=== PATIENT | female | born 1955 | race Caucasian/White ===

== ENCOUNTER 2016-04-07 05:07 | Inpatient (IN) | payer BC, OTHER ==
--- NOTE | 2016-03-27 10:31 | HISTORY & PHYSICAL EXAMINATION ---
DATE OF ADMISSION: 04/07/2016 PROCEDURE: Left knee replacement. HISTORY OF PRESENT ILLNESS: The patient is a pleasant 60-year-old female who presents for preoperative evaluation prior to a left knee replacement. She states she has been having pain in this knee for several years now, which has gradually worsened. It has now gotten to the point it is affecting her daily activities including walking, standing, going up and down steps. She has tried oral anti-inflammatories including Mobic and Celebrex without relief. She has tried over the counter braces, cortisone injection and viscosupplementation with no relief. At this point in time, has failed conservative measures and would like to proceed with left knee replacement. PAST MEDICAL HISTORY: 1. Hypertension. 2. High cholesterol. 3. Diabetes. 4. Hypothyroidism. 5. Obesity. ALLERGIES: No known drug allergies. CURRENT MEDICATIONS: 1. Benazepril 20 mg daily. 2. Aspirin 81 mg daily. 3. Janumet 50/500 mg 2 daily. 4. Amlodipine 5 mg daily. 5. Statin 1 tablet daily. 6. Vitamin D3. PAST SURGICAL HISTORY: 1. Tonsillectomy in 1972. 2. Cholecystectomy in 1975. 3. Hysterectomy in 1989. FAMILY HISTORY: Noncontributory. SOCIAL HISTORY: The patient admits to smoking one half pack per day for 6 years. She denies any alcohol use. 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 REVIEW OF SYSTEMS: Otherwise negative. Please see HPI for pertinent positives. PHYSICAL EXAMINATION: GENERAL: Pleasant female in no acute distress, alert and oriented x3. She is 5 feet 1, weighs 215 pounds. VITAL SIGNS: Blood pressure is 118/70, pulse 70, O2 sats 98% on room air. HEAD, EYES, EARS, NOSE, AND THROAT: Normocephalic, atraumatic. CARDIAC: Regular rate and rhythm. No murmurs or gallops appreciated. Resting pulse 80 beats per minute. LUNGS: Clear to auscultation without rales or wheeze bilaterally. ABDOMEN: Soft, nontender. Bowel sounds present. EXTREMITIES: Left lower extremity is neurovascularly intact. Calves are soft and nontender. DP pulse +2. Demonstrates good quad tone. Straight leg raise without lag. No erythema or warmth. Has mild effusion. Overall has varus alignment. She has positive crepitation with motion, range of motion is 0/3/115. IMAGING: Reviewed of the left knee shows findings consistent with degenerative joint disease including joint space narrowing, subchondral sclerosis, peripheral osteophytes noted. Also has varus alignment, has complete loss of joint space of the medial compartment. IMPRESSION: 1. Left knee degenerative joint disease. 2. Hypertension. 3. High cholesterol. 4. Diabetes. 5. Hypothyroidism. PLAN: Further care discussed with patient. At this point in time, has failed conservative measures and would like to proceed with a left knee replacement on 04/07/2016. Will place on aspirin 81 mg p.o. b.i.d. for a month postop. Otherwise, has no other questions or concerns. At this point in time, would like to be discharged home with home health physical therapy.
[2016-03-27 12:49] VITALS: BMI 39.0
--- NOTE | 2016-03-27 13:16 | PAT Medication Instructions ---
Service Date Mar 27, 2016. Current Home Medication List Amlodipine (Norvasc), 5 MG PO QAM Aspirin (Aspirin Ec), 81 MG PO QAM Benazepril (Lotensin), 20 MG PO QAM Cholecalciferol (Vitamin D3), 1 TAB PO WEEKLY Naproxen (Aleve), 220 MG PO PRN Rosuvastatin Calcium (Crestor), 5 MG PO QAM Sitagliptin-Metformin Hcl (Janumet), 1 TAB PO QAM [Levothyroxiine], 1 TAB PO QAM Medication Instructions For Your Scheduled Surgery - Continue as directed: Cholecalciferol (Vitamin D3), 1 TAB PO WEEKLY - Hold the following medications 48 hours prior to surgery: Sitagliptin-Metformin Hcl (Janumet), 1 TAB PO QAM - Hold the following medications the morning of surgery: Benazepril (Lotensin), 20 MG PO QAM Naproxen (Aleve), 220 MG PO PRN - Take the following medications the morning of surgery with a sip of water OTHERWISE NOTHING TO EAT OR DRINK AFTER: Amlodipine (Norvasc), 5 MG PO QAM Aspirin (Aspirin Ec), 81 MG PO QAM Rosuvastatin Calcium (Crestor), 5 MG PO QAM [Levothyroxine], 1 TAB PO QAM If you have any questions please call us at [phone] or [phone] or [phone]
[2016-03-27 13:49] LABS: BASO % 1.1 %; COMPLETE YES; EOS % 3.1 %; HEMATOCRIT 40.6 % (37-47); IG% 0.2 %; LYMPH % 21.7 %; LYMPH ABS # 1.98 K/uL (1.2-3.4); MEAN CELL VOLUME 92.5 fL (80-100); MEAN CORPUSCULAR HGB CONC 33.5 g/dl (32-36); MONO % 4.1 %; NEUT % 69.8 %; PLATELET COUNT 241 K/uL (130-400); RED BLOOD COUNT 4.39 M/uL (4.2-5.4); WHITE BLOOD COUNT 9.12 K/uL (4.8-10.8)
--- NOTE | 2016-03-27 13:57 | DIAGNOSTIC IMAGING REPORT ---
CHEST PREADMISSION(PA/LAT) CLINICAL HISTORY: Preoperative chest COMPARISON STUDY: No previous studies for comparison. FINDINGS: The cardiac and mediastinal contours are normal. There is no evidence of focal pulmonary consolidation. There is no evidence of failure. No pleural effusions are visualized.[ IMPRESSION: No active disease in the chest. Electronically signed by: Rolando Woodruff M.D. 03/27/2016 1:56 PM Dictated Date/Time: 03/27/2016 1:56 PM
[2016-03-27 14:06] LABS: PROTHROMBIN TIME (PATIENT) 10.7 SECONDS (9.0-12.0)
[2016-03-27 14:07] LABS: ESTIMATED AVERAGE GLUCOSE 123 mg/dl; HA1C FLAG Normal (Normal)
[2016-03-27 14:13] LABS: BUN/CREATININE RATIO 20.1 (10-20); CREATININE 0.74 mg/dl (0.60-1.20); POTASSIUM 3.9 mmol/L (3.5-5.1)
[2016-03-27 14:25] LABS: URINE APPEARANCE CLEAR (CLEAR); URINE BILIRUBIN NEG (NEG); URINE COLOR YELLOW; URINE NITRITE NEG (NEG); URINE SPECIFIC GRAVITY 1.027 (1.000-1.030); UROBILINOGEN NEG (NEG)
[2016-03-27 14:29] LABS: MANUAL MICROSCOPIC REQUIRED? NO; REVIEW REQ? NO
[2016-04-07] VITALS (9 sets, daily range): BP systolic 114–170; BP diastolic 62–79; PULSE 53–76; TEMP 36.4–36.6; O2SAT 95–98; Ht 154.9 cm; Wt 97.0 kg
[~2016-04-07] VITALS: Ht 154.9 cm; Wt 97.0 kg
[~2016-04-07 05:07] MED LIST: AMLO-110 PO; ASPI81TA28 PO; BENA20TA14 PO; CHOL1000 PO; LEVOTHYROXINE PO; NAPR1TAB9 PO; ROSU5TAB PO; SITA50TA5 PO
[2016-04-07] MEDS ORDERED: FAMOTIDINE 20 MG TAB PO SCH (06:00)
[2016-04-07] MEDS ORDERED: CEFAZOLIN 2000 MG/60 ML D5W 60 ML IV SCH (06:00)
[2016-04-07] MEDS ORDERED: LACTATED RINGER'S 1000ML 500 ML IV ONE (06:00)
[2016-04-07] MEDS ORDERED: ROPIVACAINE 5MG/ML 30 ML 150 MG, BUPIVACAINE/EPINEPHR 0.5% MPF 30 ML, KETOROLAC TROMETH... INFIL SCH ×7 (06:00)
[2016-04-07] MEDS ORDERED: METOCLOPRAMIDE HCL 10 MG TAB PO SCH (06:00)
[2016-04-07] MEDS ORDERED: GABAPENTIN 300 MG CAP PO SCH (06:00)
[2016-04-07] MEDS ORDERED: LACTATED RINGER'S 1000ML 1,000 ML IV SCH (06:00)
[2016-04-07] MEDS ORDERED: CeleBREX 200 MG CAP PO SCH (06:00)
[2016-04-07] MEDS ORDERED: DEXAMETHASONE 4 MG TAB PO SCH (06:00)
[2016-04-07] MEDS ORDERED: LACTATED RINGER'S 1000ML IV SCH (06:00)
[2016-04-07] MEDS ORDERED: ACETAMINOPHEN 500 MG TAB PO SCH (06:00)
[2016-04-07] MEDS ORDERED: BUPIVACAINE 0.5 % 5 MG/1 ML PF 10ML VIAL ONE (06:15)
[2016-04-07] MEDS ORDERED: BUPIVACAINE 0.25% 30 ML VIAL ONE (06:16)
[2016-04-07] MEDS ORDERED: PROPOFOL IV EMULSION 10 MG/ML 20 ML VIAL IV ONE (06:29)
[2016-04-07] MEDS ORDERED: MIDAZOLAM HCL 1 MG/ML 2ML VIAL ONE (06:29)
[2016-04-07] MEDS ORDERED: ONDANSETRON INJ 2 MG/ML 2 ML VIAL ONE (06:29)
[2016-04-07] MEDS ORDERED: FENTANYL CITRATE INJ 50 MCG/1 ML 2 ML VIAL ONE (06:29)
[2016-04-07] MEDS ORDERED: LIDOCAINE HCL 2% 2 ML VIAL (20MG/ML) ONE (06:29)
[2016-04-07] MEDS: TRANEXAMIC ACID INJ 1,000 MG in SODIUM CHLORIDE 0.9% 100ML 100 ML IV SCH ×2 (06:30→07:06)
[2016-04-07] MEDS ORDERED: ORTHO JOINT ANESTHETIC ONE (06:53)
[2016-04-07] MEDS ORDERED: BACITRACIN 50000 UNIT VIAL ONE (06:53)
--- NOTE | 2016-04-07 07:10 | History & Physical Bridge Note ---
H&P Re-Evaluation Bridge Note: I have examined the patient, reviewed the History & Physical and in the interval since the performance of the History & Physical I have noted the following changes of clinical significance: No changes noted
[2016-04-07] MEDS ORDERED: POVIDONE-IODINE OP SOLN 30 ML BTL ONE (07:11)
--- NOTE | 2016-04-07 08:13 | [facility] Post Operative Brief Note ---
Immediate Operative Summary Operative Date Apr 07, 2016. Pre-Operative Diagnosis Left knee degenerative joint disease Post-Operative Diagnosis same as preop Procedure(s) Performed Left total knee arthroplasty adelaida barlow [address] 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
[2016-04-07] MEDS ORDERED: PHENYLEPHRINE 100MCG/ML 5ML SYR IV PRN (08:30)
[2016-04-07] MEDS ORDERED: KETOROLAC TROMETHAMINE 30 MG/ML VIAL IV. PRN (08:30)
[2016-04-07] MEDS ORDERED: EpHEDrine SULFATE INJ 50 MG/ML AMP IV PRN (08:30)
[2016-04-07] MEDS ORDERED: HYDROmorphone INJ 2 MG/ML SYR/VIAL IV PRN (08:30)
[2016-04-07] MEDS ORDERED: ATROPINE SULFATE 0.1 MG/ML 5ML SYR IV PRN (08:30)
[2016-04-07] MEDS ORDERED: ONDANSETRON INJ 2 MG/ML 2 ML VIAL IV PRN ×2 (08:30→09:00)
--- NOTE | 2016-04-07 08:35 | OPERATIVE REPORT ---
DATE OF OPERATION: 04/07/2016 PREOPERATIVE DIAGNOSIS: Severe end-stage tricompartmental degenerative joint disease left knee. POSTOPERATIVE DIAGNOSIS: Severe end-stage tricompartmental degenerative joint disease left knee. PROCEDURE: Left total knee arthroplasty utilizing Journey II nonblock total knee arthroplasty size 4 femur, 3 tibia, 10 poly, 29 oval patella. SURGEON: Dr. Lock. POTATO PANCAKE FRIER: Tai Casarez PA-C, who was necessary for prepping, draping, retraction, wound closure of deep fascia, subQ with skin and was necessary for the case. ESTIMATED BLOOD LOSS: 10 mL. COMPLICATIONS: None. TOURNIQUET TIME: 40 minutes. HISTORY OF PRESENT ILLNESS: The patient presents as a very pleasant 60-year-old white female with severe end-stage tricompartmental degenerative joint disease of the left knee. She has been unresponsive to conservative therapy and presents today for left total knee arthroplasty. OPERATION AND FINDINGS: PROCEDURE: The patient was properly prepped and draped in supine position for total knee arthroplasty after identifying the appropriate surgical site. An anterior midline incision was made through the subcutaneous tissues down to the region of the extensor mechanism. A medial parapatellar incision was subsequently made. Meticulous hemostasis was obtained and performed at all times. The patella having been subluxed lateralward, medial and lateral meniscal remnants were excised. The patellar cut was then initially made and was sized to the appropriate size. After subluxing the tibia forward the appropriate meniscal fragments having been removed the distal femur was then cut first utilizing a Galvan \T\ Nephew block. The distal femoral cuts and chamfer cuts were all made under direct visualization and the proximal tibial osteotomy cut was also made utilizing Galvan \T\ Nephew blocks and checked with an extramedullary guide. The appropriate trial components on the femur and tibia were placed. Appropriate trial spacers were used to check flexion and extension gaps. With flexion and extension gaps being equal, the components were then subsequently after thorough irrigation and debridement lavage components were then subsequently cemented in the following order: femur, tibia and patella. Exparel was used for intraoperative anesthesia, the medial parapatellar incision was closed utilizing #1 Vicryl, subQ was closed with 2-0 Vicryl, skin was closed with skin clips. A sterile compression dressing was placed. The patient was taken to recovery room in stable condition. Due to the complex nature of the procedure, the entire surgery was performed with the operational assistance of Tai Casarez PA-C. The legal assistant, under direct supervision, was involved in the actual performance of all aspects of the surgical procedure including hemostasis, tissue retraction and incision, instrument management, patient positioning, and wound closure. I attest to the content of the Intraoperative Record and any orders documented therein. Any exceptio ns are noted below.
[2016-04-07] MEDS ORDERED: MAGNESIUM HYDROXIDE SUSP 30 ML UDC PO PRN (09:00)
[2016-04-07] MEDS ORDERED: SOD PHOSPHATE/SOD BIPHOSPHATE ENEMA 132 ML BTL PR PRN (09:00)
[2016-04-07] MEDS ORDERED: MoRPHine SULFATE 2 MG/ML CARP IV PRN (09:00)
[2016-04-07] MEDS ORDERED: ALUMINUM/MAGNESIUM/SIMETH (MAALOX MAX) 30 ML UDC PO PRN (09:00)
[2016-04-07] MEDS ORDERED: BISACODYL 10 MG SUPP PR PRN (09:00)
[2016-04-07] MEDS ORDERED: MoRPHine SULFATE 10 MG/ML CARP/VIAL IV PRN (10:00)
[2016-04-07] MEDS ORDERED: MoRPHine SULFATE 4 MG/ML 1 ML CARP\\VIAL IV PRN (10:00)
[2016-04-07] MEDS: SODIUM CHLORIDE 0.9% 1000ML 1,000 ML IV SCH ×2 (10:20→18:58)
--- NOTE | 2016-04-07 10:22 | Anesthesiology Progress Note ---
Anesthesia Post Op Note Date & Time Apr 07, 2016 at 10:22 Vital Signs Pain Intensity: 0 Vital Signs Past 12 Hours Date Time Temp Pulse Resp B/P Pulse Ox O2 Delivery O2 Flow Rate FiO2 04/07/16 10:10 36.7 64 16 143/81 96 Nasal Cannula 2 04/07/16 10:01 56 14 04/07/16 10:01 56 14 98 04/07/16 09:59 135/60 04/07/16 09:58 135/60 04/07/16 09:56 61 17 97 04/07/16 09:56 60 17 04/07/16 09:53 128/64 04/07/16 09:51 59 17 97 04/07/16 09:51 56 17 04/07/16 09:50 129/66 04/07/16 09:48 129/66 04/07/16 09:46 60 20 98 04/07/16 09:46 60 20 04/07/16 09:43 138/64 04/07/16 09:41 58 18 04/07/16 09:41 64 18 98 04/07/16 09:38 130/74 04/07/16 09:36 58 18 04/07/16 09:36 56 18 98 04/07/16 09:33 132/69 04/07/16 09:31 59 21 98 04/07/16 09:31 61 21 04/07/16 09:28 132/76 04/07/16 09:26 69 22 04/07/16 09:26 70 22 98 04/07/16 09:23 135/63 04/07/16 09:21 64 19 04/07/16 09:21 59 19 97 04/07/16 09:18 125/64 04/07/16 09:17 141/61 04/07/16 09:16 60 23 04/07/16 09:16 59 23 98 04/07/16 09:13 141/61 04/07/16 09:11 67 21 04/07/16 09:11 67 21 98 04/07/16 09:08 140/63 04/07/16 09:06 69 20 100 04/07/16 09:06 69 20 04/07/16 09:03 129/64 04/07/16 09:01 79 22 04/07/16 09:01 79 22 100 04/07/16 08:58 137/71 04/07/16 08:56 76 17 04/07/16 08:56 77 17 100 04/07/16 08:56 36.9 82 18 146/70 99 Mask 10 04/07/16 05:50 36.6 76 18 170/70 98 Room Air Notes Mental Status: alert / awake / arousable, participated in evaluation Pt Amnestic to Procedure: Yes Nausea / Vomiting: adequately controlled Pain: adequately controlled Airway Patency, RR, SpO2: stable & adequate BP & HR: stable & adequate Hydration State: stable & adequate Neuraxial Anesthesia: was administered, sensory block is resolving Anesthetic Complications: no major complications apparent
--- NOTE | 2016-04-07 11:19 | DIAGNOSTIC IMAGING REPORT ---
TWO VIEWS LEFT KNEE CLINICAL HISTORY: Postoperative examination. FINDINGS: AP and crosstable lateral portable views of the left knee are obtained. A left knee arthroplasty is in near anatomic alignment. There has been undersurface remodeling of the patella. No acute fracture is seen. There are expected postoperative changes around the knee including skin clips, a surgical drain, soft tissue edema, and subcutaneous gas. IMPRESSION: Expected postoperative changes status post left knee arthroplasty. No acute fracture is seen. Electronically signed by: Bryce Chamorro M.D. 04/07/2016 11:18 AM Dictated Date/Time: 04/07/2016 11:18 AM
--- NOTE | 2016-04-07 11:29 | Medical Consult ---
Consultation Date of Consultation: Apr 07, 2016. Attending Physician: Sudarshan Lock D.O. Reason for Consultation: Medical management History of Present Illness Patient is a pleasant 60 y/o female, with PMHx of HTN, hyperlipidemia, T2DM, and hypothyroidism, s/p left total knee replacement by Dr. Lock on 04/07. Per patient, procedure went well today. Pain is currently well-controlled. No passing gas/BM postop. Patient has not eaten yet. Patient denies any fever, chills, sweats, lightheadedness, dizziness, vision changes, CP, palpitations, edema, SOB, wheezing, cough, abdominal pain, nausea, vomiting, diarrhea, urinary symptoms, melena, numbness/tingling, weakness, anxiety/depression, active bleeding, or new skin discoloration/changes. Past Medical/Surgical History 1. HTN 2. Hyperlipidemia 3. T2DM 4. Hypothyroidism Family History Father- heart disease Social History Smoking Status: Current Every Day Smoker Smokeless Tobacco Use: No Allergies Coded Allergies: No Known Allergies (Unverified , 04/07/16) Home Medications Reported Home Medications Medications Dose Route/Sig Max Daily Dose Days Date Category Dose Instructions [Levothyroxiine] 100mcg 1 Tab PO QAM 03/27/16 Reported Aleve (Naproxen) 220 Mg Tab 220 Mg PO PRN 03/27/16 Reported Vitamin D3 (Cholecalciferol) 1,000 Unit Tab 1 Tab PO WEEKLY 90 03/27/16 Reported WEDNESDAY AM Janumet (Sitagliptin-Metformin Hcl) 1 Tab Tab 1 Tab PO QAM 90 03/27/16 Reported 50/500 MG Crestor (Rosuvastatin Calcium) 5 Mg Tab 5 Mg PO QAM 03/27/16 Reported Aspirin Ec (Aspirin) 81 Mg Tab 81 Mg PO QAM 03/27/16 Reported Norvasc (Amlodipine Besylate) 5 Mg Tab 5 Mg PO QAM 03/27/16 Reported Lotensin (Benazepril HCl) 20 Mg Tab 20 Mg PO QAM 03/27/16 Reported Current Inpatient Medications Current Inpatient Medications Medications (Trade) Dose Ordered Sig/Naomi Route Start Time Stop Time Status Last Admin Dose Admin Cefazolin Sodium (Ancef 2000mg/60 ml D5W) 60 ml @ 100 mls/hr PREOP IV 04/07/16 06:00 04/07/16 18:00 04/07/16 07:20 100 MLS/HR Acetaminophen (Tylenol Tab) 1,000 mg PREOP PO 04/07/16 06:00 04/07/16 18:00 04/07/16 06:08 1,000 MG Celecoxib (CeleBREX CAP) 200 mg PREOP PO 04/07/16 06:00 04/07/16 18:00 04/07/16 06:08 200 MG Dexamethasone (Decadron Tab) 8 mg PREOP PO 04/07/16 06:00 04/07/16 18:00 04/07/16 06:07 8 MG Famotidine (Pepcid Tab) 20 mg PREOP PO 04/07/16 06:00 04/07/16 18:00 04/07/16 06:08 20 MG Gabapentin (Neurontin Cap) 600 mg PREOP PO 04/07/16 06:00 04/07/16 18:00 04/07/16 06:07 600 MG Metoclopramide HCl 10 mg 10 mg PREOP PO 04/07/16 06:00 04/07/16 18:00 04/07/16 06:07 10 MG Tranexamic Acid/ Sodium Chloride (Cyklokapron Inj/ Nss 100ml) 110 ml @ 660 mls/hr TODAY@06,0630 IV 04/07/16 06:00 04/07/16 18:00 04/07/16 07:06 660 MLS/HR Ondansetron HCl (Zofran Inj) 4 mg ONE PRN IV 04/07/16 08:30 04/08/16 08:29 Atropine Sulfate (Atropine Sulfate 0.1MG/Ml Inj) 0.5 mg Q1M PRN IV 04/07/16 08:30 04/07/16 13:30 Ephedrine Sulfate (EpHEDrine SULFATE INJ) 5 mg Q5M PRN IV 04/07/16 08:30 04/07/16 13:30 Ketorolac Tromethamine (Toradol Inj) 30 mg ONE PRN IV. 04/07/16 08:30 04/07/16 13:30 Hydromorphone HCl (Dilaudid Inj) 0.25 mg Q5M PRN IV 04/07/16 08:30 04/07/16 13:30 Phenylephrine HCl 100 mcg 100 mcg Q5M PRN IV 04/07/16 08:30 04/07/16 13:30 Sodium Chloride 1,000 ml @ 100 mls/hr Q10H IV 04/07/16 08:54 04/08/16 08:53 04/07/16 10:20 100 MLS/HR Cefazolin Sodium/ Dextrose (Ancef Iv/D5 50ml) 60 ml @ 100 mls/hr Q8H IV 04/07/16 16:00 04/08/16 00:35 Celecoxib (CeleBREX CAP) 200 mg BID PO 04/07/16 21:00 05/07/16 20:59 Oxycodone HCl (Roxicodone Immediate Rel Tab) 1 TABLET FOR PAIN RATING... Q4H PRN PO 04/07/16 09:00 04/21/16 08:59 Oxycodone HCl (Oxycontin Tab) 10 mg Q12 PO 04/07/16 21:00 04/21/16 20:59 Acetaminophen (Tylenol Tab) 1,000 mg Q8H PO 04/07/16 14:00 05/07/16 08:59 Magnesium Hydroxide (Milk Of Magnesia Susp) 30 ml Q6H PRN PO 04/07/16 09:00 05/07/16 08:59 Bisacodyl (Dulcolax Supp) 10 mg DAILY PRN GA 04/07/16 09:00 05/07/16 08:59 Sodium Biphosphate/ Sodium Phosphate (Fleet Enema) 132 ml DAILY PRN GA 04/07/16 09:00 05/07/16 08:59 Senna (Senokot Tab) 17.2 mg HS PO 04/07/16 21:00 05/07/16 20:59 Docusate Sodium (coLACE CAP) 100 mg BID PO 04/07/16 09:00 05/07/16 08:59 Diphenhydramine HCl (Benadryl Cap) 25 mg Q8H PRN PO 04/07/16 09:00 05/07/16 08:59 Al Hydrox/Mg Hydrox/Simethicone (Maalox Max Susp) 15 ml Q4H PRN PO 04/07/16 09:00 05/07/16 08:59 Multivitamins (Multivitamin Tab) 1 tab QAM PO 04/07/16 09:00 05/07/16 08:59 Ondansetron HCl (Zofran Inj) 4 mg Q6H PRN IV 04/07/16 09:00 05/07/16 08:59 Pantoprazole Sodium (Protonix Tab) 40 mg QAM PO 04/07/16 09:00 05/07/16 08:59 Aspirin (Ecotrin Tab) 81 mg BID PO 04/07/16 21:00 05/07/16 20:59 Rosuvastatin Calcium (Crestor Tab) 5 mg QAM PO 04/07/16 09:00 05/07/16 08:59 Enalapril Maleate (Vasotec Tab) 20 mg QAM PO 04/07/16 09:00 05/07/16 08:59 Levothyroxine Sodium (Synthroid Tab) 100 mcg DAILYBB PO 04/08/16 06:00 05/08/16 05:59 Morphine Sulfate (MoRPHine SULFATE INJ) 2 mg Q4HWA PRN IV 04/07/16 09:00 04/21/16 08:59 Insulin Aspart (novoLOG ASPART) SLIDING SCALE G... ACHS SC 04/07/16 12:00 05/07/16 11:59 Morphine Sulfate (MoRPHine SULFATE INJ) 4 mg Q4HWA PRN IV 04/07/16 10:00 04/21/16 09:59 Morphine Sulfate (MoRPHine SULFATE INJ) 6 mg Q4HWA PRN IV 04/07/16 10:00 04/21/16 09:59 Physical Exam Date Time Temp Pulse Resp B/P Pulse Ox O2 Delivery O2 Flow Rate FiO2 04/07/16 10:50 61 16 124/72 96 Nasal Cannula 2.0 04/07/16 10:10 36.7 64 16 143/81 96 Nasal Cannula 2 04/07/16 10:01 56 14 04/07/16 10:01 56 14 98 04/07/16 09:59 135/60 04/07/16 09:58 135/60 04/07/16 09:56 61 17 97 04/07/16 09:56 60 17 04/07/16 09:53 128/64 04/07/16 09:51 59 17 97 04/07/16 09:51 56 17 04/07/16 09:50 129/66 04/07/16 09:48 129/66 04/07/16 09:46 60 20 98 04/07/16 09:46 60 20 04/07/16 09:43 138/64 04/07/16 09:41 58 18 04/07/16 09:41 64 18 98 04/07/16 09:38 130/74 04/07/16 09:36 58 18 04/07/16 09:36 56 18 98 04/07/16 09:33 132/69 04/07/16 09:31 59 21 98 04/07/16 09:31 61 21 04/07/16 09:28 132/76 04/07/16 09:26 69 22 04/07/16 09:26 70 22 98 04/07/16 09:23 135/63 04/07/16 09:21 64 19 04/07/16 09:21 59 19 97 04/07/16 09:18 125/64 04/07/16 09:17 141/61 04/07/16 09:16 60 23 04/07/16 09:16 59 23 98 04/07/16 09:13 141/61 04/07/16 09:11 67 21 04/07/16 09:11 67 21 98 04/07/16 09:08 140/63 04/07/16 09:06 69 20 100 04/07/16 09:06 69 20 04/07/16 09:03 129/64 04/07/16 09:01 79 22 04/07/16 09:01 79 22 100 04/07/16 08:58 137/71 04/07/16 08:56 76 17 04/07/16 08:56 77 17 100 04/07/16 08:56 36.9 82 18 146/70 99 Mask 10 04/07/16 05:50 36.6 76 18 170/70 98 Room Air General Appearance: no apparent distress, + pertinent finding (O2 supplement on ) Head: normocephalic, atraumatic Eyes: normal inspection, PERRL ENT: hearing grossly normal Neck: supple Respiratory/Chest: lungs clear, no respiratory distress, no accessory muscle use Cardiovascular: regular rate, rhythm Abdomen/GI: normal bowel sounds, non tender, soft Extremities/Musculoskelatal: no pedal edema, + pertinent finding (TEDs/SCDs on ) Neurologic/Psych: alert, normal mood/affect, oriented x 3 Skin: normal color, warm/dry, no rash Laboratory Results Last 24 Hours Test 04/07/16 05:55 04/07/16 09:00 Bedside Glucose 120 mg/dl 140 mg/dl Assessment & Plan 60 y/o female, with PMHx of HTN, hyperlipidemia, T2DM, and hypothyroidism, s/p left total knee replacement by Dr. Lock on 04/07 - DVT prophylaxis, pain management, and PT/OT as per primary team - Follow CBC and PRP HTN: - Hold ACEI, pending morning AM labs with kidney function - Continue Norvasc 5 mg PO daily - Hydralazine IV PRN Hyperlipidemia: - Continue Crestor 5 mg PO daily T2DM: - Hold Janumet - BSG ACHS with sliding insulin scale - 03/27/16 ha1c of 5.9 Hypothyroidism: - Continue Synthroid 100 mcg PO daily Tobacco abuse: - Smokes 1/2 pack per day - Smoking cessation counselling DVT prophylaxis: - As per primary team Code Status: - LEVEL I, FULL Thank you for this consultation. We will continue to follow throughout hospital stay. Reviewed: Pt Seen/Exam by Me, MIKAL Notes, Labs, RAD History Physician Manager Civil Supervision Note: I interviewed and examined the patient. Discussed with DIONISIO Almodovar and agree with findings and plan as documented in the note. Any exceptions or clarifications are listed here: Pt doing very well post-op, eating and no N/V, no abd pain, passing flatus, ambulating with walker, no CP or SOB Vitals reviewed NAD, obese RRR no mgr nl S1S2 CTAB no wcr Abd obese soft +BS NT ND Ext left leg in large ALFREDO wrap with hemovac draining blood, right leg with no edema, no calf tenderness Skin no rashes A/P: 60 yo female with HTN, DMII, hypothryoidism, OA here s/p left TKA. Doing very well post-op -Continue home meds except metformin and lisinopril as above but can restart tomorrow if labs ok Follow post-op CBC ASA 81 bid for DVT proph Dispo to home with HH when ready as per Ortho team Documented By: Sarah Edwards
[2016-04-07] MEDS ORDERED: HydrALAZINE HCL 20 MG/ML VIAL IV. PRN (11:30)
[2016-04-07] MEDS ORDERED: INSULIN ASPART 100 UNITS/ML 3 ML PEN SC SCH (12:00)
[2016-04-07] MEDS: INSULIN ASPART 100 UNITS/ML 3 ML PEN SC SCH ×3 (14:06→20:57)
[2016-04-07] MEDS: DOCUSATE SODIUM 100 MG CAP PO SCH ×2 (14:07→20:54)
[2016-04-07] MEDS: PANTOprazole SOD 40 MG TAB PO SCH (14:08)
[2016-04-07] MEDS: ROSUVASTATIN CALCIUM 5 MG TAB PO SCH (14:08)
[2016-04-07] MEDS: ACETAMINOPHEN 500 MG TAB PO SCH ×2 (14:08→21:30)
[2016-04-07] MEDS: MULTIVITAMIN TAB PO SCH (14:09)
[2016-04-07] MEDS: ENALAPRIL MALEATE 10 MG TAB PO SCH (14:10)
[2016-04-07] MEDS: CEFAZOLIN IV 2,000 MG in DEXTROSE 5% 50ML 50 ML IV SCH ×2 (16:22→23:48)
[2016-04-07] MEDS: OXYCODONE HCL IR 5 MG TAB (IMMEDIATE RELEASE) PO PRN ×2 (16:28→20:53)
[2016-04-07] MEDS: SENNA 8.6 MG TAB PO SCH (20:53)
[2016-04-07] MEDS: OXYCODONE HCL 10 MG TABCR (OXYCONTIN) PO SCH (20:53)
[2016-04-07] MEDS: ASPIRIN 81 MG ECTAB PO SCH (20:53)
[2016-04-07] MEDS: CeleBREX 200 MG CAP PO SCH (20:53)
[2016-04-08 03:05] VITALS: BP 124/72; PULSE 49; TEMP 36.6; O2SAT 97
[2016-04-08] MEDS: SODIUM CHLORIDE 0.9% 1000ML 1,000 ML IV SCH (05:26)
[2016-04-08] MEDS: LEVOTHYROXINE 100 MCG TAB PO SCH (05:27)
[2016-04-08] MEDS: ACETAMINOPHEN 500 MG TAB PO SCH ×3 (05:27→21:55)
[2016-04-08 06:30] LABS: MEAN CELL VOLUME 92.1 fL (80-100); MEAN CORPUSCULAR HEMOGLOBIN 31.1 pg (25-34); MEAN CORPUSCULAR HGB CONC 33.7 g/dl (32-36); PLATELET COUNT 232 K/uL (130-400); WHITE BLOOD COUNT 13.41 K/uL (4.8-10.8)
[2016-04-08 06:35] LABS: PROTHROMBIN TIME (PATIENT) 10.7 SECONDS (9.0-12.0)
[2016-04-08 07:05] LABS: BUN/CREATININE RATIO 21.8 (10-20); CALCIUM 8.5 mg/dl (8.5-10.1); CREATININE 0.74 mg/dl (0.60-1.20); POTASSIUM 4.2 mmol/L (3.5-5.1)
--- NOTE | 2016-04-08 07:17 | Orthopedic Progress Note ---
Orthopedic Progress Note Date of Service Apr 08, 2016. Subjective Post OP Day: 1 (s/p Left TKA) Reports: feeling well, pain controlled w PO medications, Denies: SOB, calf pain , chest pain, complaints, light headedness, nausea / vomiting Objective calves soft nontender, N/V intact, capillary refill less than 2 sec., dressing C /D/I, A&O x3, toes mobile, hemovac drainage (175cc/8 hours) Date Time Temp Pulse Resp B/P Pulse Ox O2 Delivery O2 Flow Rate FiO2 04/08/16 03:05 36.6 49 17 124/72 97 Room Air 04/07/16 22:55 36.6 53 18 123/62 97 Room Air 04/07/16 19:40 Room Air 04/07/16 19:05 36.4 58 16 144/76 96 Room Air 04/07/16 15:17 36.5 62 16 125/77 96 Room Air 04/07/16 13:20 58 16 114/76 98 Nasal Cannula 2.0 04/07/16 12:19 57 16 129/70 98 Nasal Cannula 2.0 04/07/16 11:20 57 16 121/72 98 Nasal Cannula 2.0 04/07/16 10:50 61 16 124/72 96 Nasal Cannula 2.0 04/07/16 10:20 95 Nasal Cannula 2.0 04/07/16 10:20 95 Nasal Cannula 2.0 04/07/16 10:20 36.6 65 18 125/71 95 Nasal Cannula 2.0 04/07/16 10:10 36.7 64 16 143/81 96 Nasal Cannula 2 04/07/16 10:01 56 14 04/07/16 10:01 56 14 98 04/07/16 09:59 135/60 04/07/16 09:58 135/60 04/07/16 09:56 61 17 97 04/07/16 09:56 60 17 04/07/16 09:53 128/64 04/07/16 09:51 59 17 97 04/07/16 09:51 56 17 04/07/16 09:50 129/66 04/07/16 09:48 129/66 04/07/16 09:46 60 20 98 04/07/16 09:46 60 20 04/07/16 09:43 138/64 04/07/16 09:41 58 18 04/07/16 09:41 64 18 98 04/07/16 09:38 130/74 04/07/16 09:36 58 18 04/07/16 09:36 56 18 98 04/07/16 09:33 132/69 04/07/16 09:31 59 21 98 04/07/16 09:31 61 21 04/07/16 09:28 132/76 04/07/16 09:26 69 22 04/07/16 09:26 70 22 98 04/07/16 09:23 135/63 04/07/16 09:21 64 19 04/07/16 09:21 59 19 97 04/07/16 09:18 125/64 04/07/16 09:17 141/61 04/07/16 09:16 60 23 04/07/16 09:16 59 23 98 04/07/16 09:13 141/61 04/07/16 09:11 67 21 04/07/16 09:11 67 21 98 04/07/16 09:08 140/63 04/07/16 09:06 69 20 100 04/07/16 09:06 69 20 04/07/16 09:03 129/64 04/07/16 09:01 79 22 04/07/16 09:01 79 22 100 04/07/16 08:58 137/71 04/07/16 08:56 76 17 04/07/16 08:56 77 17 100 04/07/16 08:56 36.9 82 18 146/70 99 Mask 10 Laboratory Results 24 Hours: Test 04/08/16 05:40 Hematocrit 35.0 % Hemoglobin 11.8 g/dL Prothromb Time International Ratio 1.0 Prothrombin Time 10.7 SECONDS Assessment & Plan Assessment: POD #1 s/p Left TKA -PT/OT -dvt proph with WINIFRED/SCD/ASA -plan for d/c home with HHPT when stable 1. HTN 2. Hyperlipidemia 3. T2DM 4. Hypothyroidism Discharge Planning Discharge Planning: home with home health DVT Prophylaxis: TEDs, SCDs, ASA Therapy: Physical Therapy
[2016-04-08 08:13] VITALS: BP 102/56; PULSE 52; TEMP 36.5; O2SAT 96
[2016-04-08 08:41] VITALS: O2SAT 96
--- NOTE | 2016-04-08 08:50 | Hospitalist Progress Note ---
Hospitalist Progress Note Date of Service Apr 08, 2016. (Sarita Silva ., SHERRON) Subjective Pt evaluation today including: conversation w/ patient, physical exam, chart review, lab review, review of inpatient medication list Voiding: no voiding problems, no incontinence Patient states she is feeling well. Pain 6/10. No BMs/passing gas postop. She is eating and drinking OK. Patient denies any fever, chills, sweats, lightheadedness, dizziness, vision changes, CP, palpitations, edema, SOB, wheezing, cough, abdominal pain, nausea, vomiting, diarrhea, urinary symptoms, melena, numbness/tingling, weakness, anxiety/depression, active bleeding, or new skin discoloration/changes. (Sraita Silva ., EASTONC) Medications Current Inpatient Medications Medications (Trade) Dose Ordered Sig/Naomi Route Start Time Stop Time Status Last Admin Dose Admin Sodium Chloride (Nss 1000ml) 1,000 ml @ 100 mls/hr Q10H IV 04/07/16 08:54 04/08/16 08:53 04/08/16 05:26 100 MLS/HR Celecoxib (CeleBREX CAP) 200 mg BID PO 04/07/16 21:00 05/07/16 20:59 04/07/16 20:53 200 MG Oxycodone HCl (Roxicodone Immediate Rel Tab) 1 TABLET FOR PAIN RATING... Q4H PRN PO 04/07/16 09:00 04/21/16 08:59 04/07/16 20:53 5 MG Oxycodone HCl (Oxycontin Tab) 10 mg Q12 PO 04/07/16 21:00 04/21/16 20:59 04/07/16 20:53 10 MG Acetaminophen (Tylenol Tab) 1,000 mg Q8H PO 04/07/16 14:00 05/07/16 08:59 04/08/16 05:27 1,000 MG Magnesium Hydroxide (Milk Of Magnesia Susp) 30 ml Q6H PRN PO 04/07/16 09:00 05/07/16 08:59 Bisacodyl (Dulcolax Supp) 10 mg DAILY PRN OK 04/07/16 09:00 05/07/16 08:59 Sodium Biphosphate/ Sodium Phosphate (Fleet Enema) 132 ml DAILY PRN OK 04/07/16 09:00 05/07/16 08:59 Senna (Senokot Tab) 17.2 mg HS PO 04/07/16 21:00 05/07/16 20:59 04/07/16 20:53 17.2 MG Docusate Sodium (coLACE CAP) 100 mg BID PO 04/07/16 09:00 05/07/16 08:59 04/07/16 20:54 100 MG Diphenhydramine HCl (Benadryl Cap) 25 mg Q8H PRN PO 04/07/16 09:00 05/07/16 08:59 Al Hydrox/Mg Hydrox/Simethicone (Maalox Max Susp) 15 ml Q4H PRN PO 04/07/16 09:00 05/07/16 08:59 Multivitamins (Multivitamin Tab) 1 tab QAM PO 04/07/16 09:00 05/07/16 08:59 04/07/16 14:09 1 TAB Ondansetron HCl (Zofran Inj) 4 mg Q6H PRN IV 04/07/16 09:00 05/07/16 08:59 Pantoprazole Sodium (Protonix Tab) 40 mg QAM PO 04/07/16 09:00 05/07/16 08:59 04/07/16 14:08 40 MG Aspirin (Ecotrin Tab) 81 mg BID PO 04/07/16 21:00 05/07/16 20:59 04/07/16 20:53 81 MG Rosuvastatin Calcium (Crestor Tab) 5 mg QAM PO 04/07/16 09:00 05/07/16 08:59 04/07/16 14:08 5 MG Enalapril Maleate (Vasotec Tab) 20 mg QAM PO 04/07/16 09:00 05/07/16 08:59 04/07/16 14:10 20 MG Levothyroxine Sodium (Synthroid Tab) 100 mcg DAILYBB PO 04/08/16 06:00 05/08/16 05:59 04/08/16 05:27 100 MCG Morphine Sulfate (MoRPHine SULFATE INJ) 2 mg Q4HWA PRN IV 04/07/16 09:00 04/21/16 08:59 Morphine Sulfate (MoRPHine SULFATE INJ) 4 mg Q4HWA PRN IV 04/07/16 10:00 04/21/16 09:59 Morphine Sulfate (MoRPHine SULFATE INJ) 6 mg Q4HWA PRN IV 04/07/16 10:00 04/21/16 09:59 Insulin Aspart (novoLOG ASPART) SLIDING SCALE G... ACHS SC 04/07/16 12:00 05/07/16 11:59 04/07/16 18:21 6 UNITS Hydralazine HCl (HydrALAZINE INJ) 10 mg Q6H PRN IV. 04/07/16 11:30 05/07/16 11:29 Amlodipine Besylate (Norvasc Tab) 5 mg QAM PO 04/08/16 09:00 05/08/16 08:59 (Sarita Silva, SHERRON) Objective Vital Signs Date Time Temp Pulse Resp B/P Pulse Ox O2 Delivery O2 Flow Rate FiO2 04/08/16 08:41 96 Room Air 04/08/16 08:13 36.5 52 18 102/56 96 Room Air 04/08/16 07:36 Room Air 04/08/16 03:05 36.6 49 17 124/72 97 Room Air 04/07/16 22:55 36.6 53 18 123/62 97 Room Air 04/07/16 19:40 Room Air 04/07/16 19:05 36.4 58 16 144/76 96 Room Air 04/07/16 15:17 36.5 62 16 125/77 96 Room Air 04/07/16 13:20 58 16 114/76 98 Nasal Cannula 2.0 04/07/16 12:19 57 16 129/70 98 Nasal Cannula 2.0 04/07/16 11:20 57 16 121/72 98 Nasal Cannula 2.0 04/07/16 10:50 61 16 124/72 96 Nasal Cannula 2.0 04/07/16 10:20 95 Nasal Cannula 2.0 04/07/16 10:20 95 Nasal Cannula 2.0 04/07/16 10:20 36.6 65 18 125/71 95 Nasal Cannula 2.0 04/07/16 10:10 36.7 64 16 143/81 96 Nasal Cannula 2 04/07/16 10:01 56 14 04/07/16 10:01 56 14 98 04/07/16 09:59 135/60 04/07/16 09:58 135/60 04/07/16 09:56 61 17 97 04/07/16 09:56 60 17 04/07/16 09:53 128/64 04/07/16 09:51 59 17 97 04/07/16 09:51 56 17 04/07/16 09:50 129/66 04/07/16 09:48 129/66 04/07/16 09:46 60 20 98 04/07/16 09:46 60 20 04/07/16 09:43 138/64 04/07/16 09:41 58 18 04/07/16 09:41 64 18 98 04/07/16 09:38 130/74 04/07/16 09:36 58 18 04/07/16 09:36 56 18 98 04/07/16 09:33 132/69 04/07/16 09:31 59 21 98 04/07/16 09:31 61 21 04/07/16 09:28 132/76 04/07/16 09:26 69 22 04/07/16 09:26 70 22 98 04/07/16 09:23 135/63 04/07/16 09:21 64 19 04/07/16 09:21 59 19 97 04/07/16 09:18 125/64 04/07/16 09:17 141/61 04/07/16 09:16 60 23 04/07/16 09:16 59 23 98 04/07/16 09:13 141/61 04/07/16 09:11 67 21 04/07/16 09:11 67 21 98 04/07/16 09:08 140/63 04/07/16 09:06 69 20 100 04/07/16 09:06 69 20 04/07/16 09:03 129/64 04/07/16 09:01 79 22 04/07/16 09:01 79 22 100 04/07/16 08:58 137/71 04/07/16 08:56 76 17 04/07/16 08:56 77 17 100 04/07/16 08:56 36.9 82 18 146/70 99 Mask 10 (Sarita Silva, PA-C) Physical Exam General Appearance: no apparent distress, + obese Eyes: normal inspection, PERRL ENT: hearing grossly normal Neck: supple Respiratory/Chest: lungs clear, no respiratory distress, no accessory muscle use Cardiovascular: regular rate, rhythm Abdomen: normal bowel sounds, non tender, soft Extremities: no pedal edema, no calf tenderness, + pertinent finding (TEDS on, left knee in supporting brace ) Neurologic/Psychiatric: alert, normal mood/affect, oriented x 3 Skin: normal color, warm/dry, no rash (Sarita Silva ., PA-C) Laboratory Results Last 24 Hours Test 04/07/16 09:00 04/07/16 12:04 04/07/16 16:41 04/07/16 20:56 Bedside Glucose 140 mg/dl 161 mg/dl 201 mg/dl 180 mg/dl Test 04/08/16 05:40 04/08/16 07:33 White Blood Count 13.41 K/uL Red Blood Count 3.80 M/uL Hemoglobin 11.8 g/dL Hematocrit 35.0 % Mean Corpuscular Volume 92.1 fL Mean Corpuscular Hemoglobin 31.1 pg Mean Corpuscular Hemoglobin Concent 33.7 g/dl RDW Standard Deviation 45.6 fL RDW Coefficient of Variation 13.6 % Platelet Count 232 K/uL Mean Platelet Volume 11.0 fL Prothrombin Time 10.7 SECONDS Prothromb Time International Ratio 1.0 Sodium Level 145 mmol/L Potassium Level 4.2 mmol/L Chloride Level 113 mmol/L Carbon Dioxide Level 24 mmol/L Anion Gap 8.0 mmol/L Blood Urea Nitrogen 16 mg/dl Creatinine 0.74 mg/dl Est Creatinine Clear Calc Drug Dose 85.0 ml/min Estimated GFR () 101.3 Estimated GFR (Non- 87.4 BUN/Creatinine Ratio 21.8 Random Glucose 126 mg/dl Calcium Level 8.5 mg/dl Bedside Glucose 127 mg/dl (Sarita Silva ., PA-C) Assessment and Plan 60 y/o female, with PMHx of HTN, hyperlipidemia, T2DM, and hypothyroidism, s/p left total knee replacement by Dr. Lock on 04/07 - DVT prophylaxis, pain management, and PT/OT as per primary team - Follow CBC and PRP--> leukocytosis, likely secondary to postop response, no s/ s of infection, continue to monitor. HTN: - Hold ACEI, pending morning AM labs with kidney function--> morning labs on OK, BPs well controlled at present, resume at discharge - Continue Norvasc 5 mg PO daily - Hydralazine IV PRN Hyperlipidemia: - Continue Crestor 5 mg PO daily T2DM: - Hold Janumet-- > resume at discharge - BSG ACHS with sliding insulin scale - 03/27/16 ha1c of 5.9 Hypothyroidism: - Continue Synthroid 100 mcg PO daily Tobacco abuse: - Smokes 1/2 pack per day - Smoking cessation counselling DVT prophylaxis: - As per primary team Code Status: - LEVEL I, FULL Thank you for this consultation. We will continue to follow throughout hospital stay. (Sarita Silva, PAMaicol) Reviewed: Pt Seen/Exam by Me, MIKAL Notes, Labs (Sarah Edwards MD) History Physician Tilting Head Band Sawyer Supervision Note: I interviewed and examined the patient. Discussed with DIONISIO Almodovar and agree with findings and plan as documented in the note. Any exceptions or clarifications are listed here: Pt doing very well post-op, eating and no N/V, no abd pain, passing flatus, ambulating with walker, no CP or SOB Vitals reviewed NAD, obese RRR no mgr nl S1S2 CTAB no wcr Abd obese soft +BS NT ND Ext left leg in large ALFREDO wrap with hemovac draining blood, right leg with no edema, no calf tenderness Skin no rashes A/P: 60 yo female with HTN, DMII, hypothryoidism, OA here s/p left TKA. Doing very well post-op -Continue home meds except metformin and can restart ACEI today as labs ok Follow post-op CBC ASA 81 bid for DVT proph Dispo to home with HH when ready as per Ortho team Documented By: Sarah Edwards (Sarah Edwards MD)
[2016-04-08] MEDS: OXYCODONE HCL IR 5 MG TAB (IMMEDIATE RELEASE) PO PRN ×3 (09:09→23:36)
[2016-04-08] MEDS: OXYCODONE HCL 10 MG TABCR (OXYCONTIN) PO SCH ×2 (09:09→20:35)
[2016-04-08] MEDS: DOCUSATE SODIUM 100 MG CAP PO SCH ×2 (09:10→20:34)
[2016-04-08] MEDS: ENALAPRIL MALEATE 10 MG TAB PO SCH (09:10)
[2016-04-08] MEDS: CeleBREX 200 MG CAP PO SCH ×2 (09:10→20:34)
[2016-04-08] MEDS: PANTOprazole SOD 40 MG TAB PO SCH (09:11)
[2016-04-08] MEDS: AMLODIPINE BESYLATE 5 MG TAB PO SCH (09:11)
[2016-04-08] MEDS: MULTIVITAMIN TAB PO SCH (09:11)
[2016-04-08] MEDS: ASPIRIN 81 MG ECTAB PO SCH ×2 (09:11→20:33)
[2016-04-08] MEDS: ROSUVASTATIN CALCIUM 5 MG TAB PO SCH (09:11)
[2016-04-08] MEDS: INSULIN ASPART 100 UNITS/ML 3 ML PEN SC SCH ×4 (09:15→20:35)
[2016-04-08 12:04] VITALS: BP 110/70; PULSE 65; TEMP 36.3; O2SAT 98
--- NOTE | 2016-04-08 14:07 | Discharge Instructions ---
Discharge Instructions Admission Reason for Admission: Left Knee Degenerative Joint Disease Discharge Discharge Diagnosis / Problem: s/p left TKA Discharge Goals Goal(s): Decrease discomfort, Improve function, Increase independence Activity Recommendations Activity Limitations: as noted below Weightbearing Status: Left weightbearing (as tolerated) . Instructions / Follow-Up Instructions / Follow-Up ACTIVITY RECOMMENDATIONS: SELF CARE INSTRUCTIONS AFTER TOTAL KNEE REPLACEMENT A. You may need to continue a physical therapy program after discharge from the hospital. There are several options available to you. Your doctor will assist you in selecting the best one for you. 1. An out-patient facility 2 to 3 times a week for therapy or home therapy. 2. Continue working on all exercises taught to you in the hospital. Your goals should be to increase bending of your knee to 90 degrees and beyond and to fully straighten your knee. B. You may progress at your own pace from walking with a walker or crutches to a cane; then to no assistive devices. C. Make walking a part of your daily routine. Be up as much as comfortable with rest periods throughout the day. Rest with leg elevation is very important. Use the ice wrap frequently for the first 3-4 weeks. D. There are no restrictions on activities. You may ride in a car, shop, participate in die cast supervisor and all social activities. E. Wear the long elastic stockings (WINIFRED hose) 20 hours a day for 2 weeks after surgery. They can be removed several times a day for laundering and for a bath. F. You may shower, no tub baths until cleared by your doctor. SPECIAL CARE INSTRUCTIONS: VERY IMPORTANT TO READ AND REVIEW A. There are a few signs you need to watch for after you are home. Call [facility] if you notice any of the followin. Increased severe knee pain. Some pain is expected especially when you exercise. 2. Increased swelling in your leg or knee; pain or swelling of the calf muscle in either lower leg. 3. Any fluid drainage from the incision. 4. Shortness of breath or chest pain. B. Please call [facility] at if you have any concerns or questions about your operation or recovery. The doctor or his nurse will return your call promptly. C. You must take antibiotics before dental work, bladder, bowel or other surgery. Your doctor will provide you with a permanent care to carry describing this precaution. IMPORTANT: * REMEMBER TO TAKE ASPIRIN, 81 MG, TWICE DAILY FOR 4 WEEKS UNLESS OTHERWISE DIRECTED. THIS IS YOUR BLOOD THINNER. * HIGH RISK PATIENTS MAY BE PRESCRIBED A STRONGER BLOOD THINNER. THIS WILL BE PROVIDED AT DISCHARGE. * CALL IF INCREASED PAIN, REDNESS, DRAINAGE OR FEVER GREATER THAT 101. * WEAR WINIFRED HOSE 20 HOURS PER DAY FOR 2 WEEKS. * Prevena- This is a large suction dressing covering your incision. This will help pull any excess drainage from the wound and allow your incision to heal properly. You may shower with this if you can keep the unit outside of the shower. If any bleeding or leakage is noted please call your doctor's office. This will remain on your incision for 7 days and then should be removed. This can be done yourself or by the home nursing staff if applicable. The entire unit is disposable once removed. Once removed, keep incision clean and dry. If redness or drainage is noted, please call your surgeon. FOLLOW UP VISIT: If appointment is not already scheduled: Please call [facility] to make a follow-up appointment for 2 weeks after your surgery at . Current Hospital Diet Patient's current hospital diet: Diabetes Type 2 Diet Discharge Diet Recommended Diet: Diabetes Type 2 Diet Procedures Procedures Performed: Left total knee arthroplasty son neph yen 2 Pending Studies Studies pending at discharge: no Laboratory Results Hemoglobin A1c Test 03/27/16 13:23 Range/Units Estimated Average Glucose 123 mg/dl Hemoglobin A1c 5.9 H 4.5-5.6 % Medical Emergencies . Who to Call and When: Medical Emergencies: If at any time you feel your situation is an emergency, please call 911 immediately. . Non-Emergent Contact Non-Emergency issues call your: Primary Care Provider, Surgeon . "Provider Documentation" section prepared by Tai Casarez. VTE Core Measure Inpt VTE Proph given/why not?: Other Anticoagulation (ASA 81mg po bid x 1 month ), T.E.DSoo Stockings, SCD's
[2016-04-08 15:09] VITALS: BP 130/68; PULSE 63; TEMP 36.4; O2SAT 97
[2016-04-08] MEDS: SENNA 8.6 MG TAB PO SCH (20:34)
[2016-04-08 22:52] VITALS: BP 126/68; PULSE 72; TEMP 36.7; O2SAT 94
[2016-04-09] MEDS: ACETAMINOPHEN 500 MG TAB PO SCH (05:49)
[2016-04-09] MEDS: LEVOTHYROXINE 100 MCG TAB PO SCH (05:49)
[2016-04-09 06:38] VITALS: BP 131/75; PULSE 76; TEMP 36.6; O2SAT 96
--- NOTE | 2016-04-09 07:24 | Orthopedic Progress Note ---
Orthopedic Progress Note Date of Service Apr 09, 2016. Subjective Post OP Day: 2 Reports: feeling well, pain controlled w PO medications, Denies: SOB, calf pain , chest pain, complaints, light headedness, nausea / vomiting Objective calves soft nontender, N/V intact, capillary refill less than 2 sec., dressing C /D/I, A&O x3, toes mobile Date Time Temp Pulse Resp B/P Pulse Ox O2 Delivery O2 Flow Rate FiO2 04/09/16 06:38 36.6 76 18 131/75 96 Room Air 04/08/16 23:40 Room Air 04/08/16 22:52 36.7 72 16 126/68 94 Room Air 04/08/16 16:10 Room Air 04/08/16 15:09 36.4 63 18 130/68 97 Room Air 04/08/16 12:04 36.3 65 16 110/70 98 Room Air 04/08/16 08:41 96 Room Air 04/08/16 08:13 36.5 52 18 102/56 96 Room Air 04/08/16 07:36 Room Air Assessment & Plan Assessment: POD #2 s/p Left TKA -PT/OT -dvt proph with WINIFRED/SCD/ASA -plan for d/c home with HHPT when stable, likely after PT today 1. HTN 2. Hyperlipidemia 3. T2DM 4. Hypothyroidism Discharge Planning Discharge Planning: home with home health DVT Prophylaxis: TEDs, SCDs, ASA Therapy: Physical Therapy
[2016-04-09] MEDS ORDERED: ONDA8TAB6 PO (07:29)
[2016-04-09] MEDS ORDERED: CLC100 PO (07:29)
[2016-04-09] MEDS ORDERED: ACET-1138 PO (07:29)
[2016-04-09] MEDS ORDERED: RXC5 PO (07:29)
[2016-04-09] MEDS ORDERED: OXYSR10 PO (07:29)
[2016-04-09] MEDS ORDERED: CLB200 PO (07:29)
[2016-04-09] MEDS ORDERED: ASPEC81 PO (07:29)
[2016-04-09] MEDS: OXYCODONE HCL IR 5 MG TAB (IMMEDIATE RELEASE) PO PRN (07:34)
[2016-04-09] MEDS: CeleBREX 200 MG CAP PO SCH (08:19)
[2016-04-09] MEDS: MULTIVITAMIN TAB PO SCH (08:19)
[2016-04-09] MEDS: ROSUVASTATIN CALCIUM 5 MG TAB PO SCH (08:19)
[2016-04-09] MEDS: DOCUSATE SODIUM 100 MG CAP PO SCH (08:20)
[2016-04-09] MEDS: ENALAPRIL MALEATE 10 MG TAB PO SCH (08:20)
[2016-04-09] MEDS: AMLODIPINE BESYLATE 5 MG TAB PO SCH (08:20)
[2016-04-09] MEDS: PANTOprazole SOD 40 MG TAB PO SCH (08:20)
[2016-04-09] MEDS: ASPIRIN 81 MG ECTAB PO SCH (08:20)
[2016-04-09] MEDS: INSULIN ASPART 100 UNITS/ML 3 ML PEN SC SCH (08:23)
[2016-04-09] MEDS: OXYCODONE HCL 10 MG TABCR (OXYCONTIN) PO SCH (08:26)
--- NOTE | 2016-04-09 08:33 | Discharge Summary ---
Orthopedic Discharge Summary Admission Date/Reason Apr 07, 2016 at 07:00 Left Knee Degenerative Joint Disease. Discharge Date/Disposition Apr 09, 2016 Home with services Diagnosis Principal Diagnosis: left knee osteoarthritis Secondary Diagnoses/Problems: 1. Hypertension. 2. High cholesterol. 3. Diabetes. 4. Hypothyroidism. Procedure(s) Performed Left total knee arthroplasty utilizing Journey II nonblock total knee arthroplasty size 4 femur, 3 tibia, 10 poly, 29 oval patella. Consultations NONE Medication Reconciliation New Medications: Ondansetron Hcl (Zofran) 8 Mg Tab 8 MG PO Q8 PRN for Nausea, #20 TAB Acetaminophen (Tylenol Extra Strength) 500 Mg Tab 1000 MG PO Q8H, #126 TAB Aspirin (Aspirin EC Low Dose) 81 Mg Ectab 81 MG PO BID for 30 Days Celecoxib (Celebrex) 200 Mg Cap 200 MG PO BID, #60 CAP Docusate Sodium (Docusate Sodium) 100 Mg Cap 100 MG PO BID, #20 CAP Oxycodone HCl (Oxycontin) 10 Mg Tabcr 10 MG PO Q12, #20 Oxycodone HCl (Oxycodone HCl) 5 Mg Tab 5-10 MG PO Q4H PRN for Pain, #60 TAB Continued Medications: Amlodipine (Norvasc) 5 Mg Tab 5 MG PO QAM, TAB Benazepril (Lotensin) 20 Mg Tab 20 MG PO QAM, TAB Cholecalciferol (Vitamin D3) 1,000 Unit Tab 1 TAB PO WEEKLY for 90 Days, TAB 3 Refills WEDNESDAY AM Rosuvastatin Calcium (Crestor) 5 Mg Tab 5 MG PO QAM, TAB Sitagliptin-Metformin Hcl (Janumet) 1 Tab Tab 1 TAB PO QAM for 90 Days, #90 TAB 3 Refills 50/500 MG [Levothyroxiine] () 100mcg 1 TAB PO QAM Discontinued Medications: Aspirin (Aspirin Ec) 81 Mg Tab 81 MG PO QAM Naproxen (Aleve) 220 Mg Tab 220 MG PO PRN, TAB Admission Physical Exam As per Admitting History & Physical. Hospital Course Patient was a same day admission after undergoing a successful left TKA. she tolerated the procedure well. Post-operatively, her activity was progressed and well tolerated. Please refer to daily progress notes and PT notes for complete details. After exam on 04/09/16, patient felt to be stable for discharge home with HHPT. Patient will f/u in the office in 2 weeks for further evaluation including x-rays and incision check, sooner if having any issues or concerns. Below are pertinent labs/studies during their hospital stay: Last Resulted BMP 04/08/16 05:40 Last Vital Signs Documentation Date Time Temp Pulse Resp B/P Pulse Ox O2 Delivery O2 Flow Rate FiO2 04/09/16 06:38 36.6 76 18 131/75 96 Room Air 04/07/16 13:20 2.0 Discharge Instructions ACTIVITY RECOMMENDATIONS: SELF CARE INSTRUCTIONS AFTER TOTAL KNEE REPLACEMENT A. You may need to continue a physical therapy program after discharge from the hospital. There are several options available to you. Your doctor will assist you in selecting the best one for you. 1. An out-patient facility 2 to 3 times a week for therapy or home therapy. 2. Continue working on all exercises taught to you in the hospital. Your goals should be to increase bending of your knee to 90 degrees and beyond and to fully straighten your knee. B. You may progress at your own pace from walking with a walker or crutches to a cane; then to no assistive devices. C. Make walking a part of your daily routine. Be up as much as comfortable with rest periods throughout the day. Rest with leg elevation is very important. Use the ice wrap frequently for the first 3-4 weeks. D. There are no restrictions on activities. You may ride in a car, shop, participate in window unit air conditioning mechanic and all social activities. E. Wear the long elastic stockings (WINIFRED hose) 20 hours a day for 2 weeks after surgery. They can be removed several times a day for laundering and for a bath. F. You may shower, no tub baths until cleared by your doctor. SPECIAL CARE INSTRUCTIONS: VERY IMPORTANT TO READ AND REVIEW A. There are a few signs you need to watch for after you are home. Call [facility] if you notice any of the followin. Increased severe knee pain. Some pain is expected especially when you exercise. 2. Increased swelling in your leg or knee; pain or swelling of the calf muscle in either lower leg. 3. Any fluid drainage from the incision. 4. Shortness of breath or chest pain. B. Please call [facility] at if you have any concerns or questions about your operation or recovery. The doctor or his nurse will return your call promptly. C. You must take antibiotics before dental work, bladder, bowel or other surgery. Your doctor will provide you with a permanent care to carry describing this precaution. IMPORTANT: * REMEMBER TO TAKE ASPIRIN, 81 MG, TWICE DAILY FOR 4 WEEKS UNLESS OTHERWISE DIRECTED. THIS IS YOUR BLOOD THINNER. * HIGH RISK PATIENTS MAY BE PRESCRIBED A STRONGER BLOOD THINNER. THIS WILL BE PROVIDED AT DISCHARGE. * CALL IF INCREASED PAIN, REDNESS, DRAINAGE OR FEVER GREATER THAT 101. * WEAR WINIFRED HOSE 20 HOURS PER DAY FOR 2 WEEKS. * Prevena- This is a large suction dressing covering your incision. This will help pull any excess drainage from the wound and allow your incision to heal properly. You may shower with this if you can keep the unit outside of the shower. If any bleeding or leakage is noted please call your doctor's office. This will remain on your incision for 7 days and then should be removed. This can be done yourself or by the home nursing staff if applicable. The entire unit is disposable once removed. Once removed, keep incision clean and dry. If redness or drainage is noted, please call your surgeon. FOLLOW UP VISIT: If appointment is not already scheduled: Please call [facility] to make a follow-up appointment for 2 weeks after your surgery at .
[2016-04-09 08:42] LABS: HEMATOCRIT 33.5 % (37-47); MEAN CELL VOLUME 92.8 fL (80-100); MEAN CORPUSCULAR HEMOGLOBIN 30.5 pg (25-34); MEAN CORPUSCULAR HGB CONC 32.8 g/dl (32-36); MEAN PLATELET VOLUME 10.6 fL (7.4-10.4); PLATELET COUNT 219 K/uL (130-400); RED BLOOD COUNT 3.61 M/uL (4.2-5.4); WHITE BLOOD COUNT 9.94 K/uL (4.8-10.8)
[2016-04-09 10:31] VITALS: BP 131/75; PULSE 76; TEMP 36.6; O2SAT 96
== END 2016-04-09 11:10 | disposition home health service (06) | DRG 470 ==
LOC: ENRESERVDT → ENRESERVTM → C.ACU 05:07 → C.3E 07:00
PROVIDERS: ADMIT Orthopaedic Surgery; ATTEND Orthopaedic Surgery
PROC: 0SRD0J9 Replacement of Left Knee Joint with Synthetic Substitute, Cemented, Open Approach (ICD-10-PCS; principal; 2016-04-07 07:15)
DX: M17.12 Unilateral primary osteoarthritis, left knee (principal); I10 Essential (primary) hypertension; E11.9 Type 2 diabetes mellitus without complications; E78.00 Pure hypercholesterolemia, unspecified; E78.5 Hyperlipidemia, unspecified; E03.9 Hypothyroidism, unspecified; F17.210 Nicotine dependence, cigarettes, uncomplicated; E66.9 Obesity, unspecified; Z68.39 Body mass index [BMI] 39.0-39.9, adult; Z79.1 Long term (current) use of non-steroidal anti-inflammatories (NSAID); Z79.82 Long term (current) use of aspirin; Z79.84 Long term (current) use of oral hypoglycemic drugs; Z79.899 Other long term (current) drug therapy